=== PATIENT | male | born 1975 | race Two or more races ===

== ENCOUNTER 2017-03-07 12:44 | Emergency (ER) | payer OTHER ==
[~2017-03-07] VITALS: Ht 175.3 cm; Wt 84.5 kg
[~2017-03-07 12:44] MED LIST: CIPRO500 MG PO; FLOMAX0.4 MG PO; NOHOMEMEDS; NORCO 5/3251 TABLET PO; TAMSULOSIN HCL0.4 MG PO; ZOFRAN ODT4 MG PO
[2017-03-07] MEDS ORDERED: FLEXERIL10 MG PO (15:10)
[2017-03-07] MEDS ORDERED: NAPROSYN500 MG PO (15:10)
[2017-03-07 15:31] VITALS: BP 147/91
== END 2017-03-07 15:52 | disposition home or self-care (01) ==
LOC: EME 12:44
DX: S86.812A Strain of other muscle(s) and tendon(s) at lower leg level, left leg, initial encounter (principal); X50.9XXA Other and unspecified overexertion or strenuous movements or postures, initial encounter
CPT/HCPCS: 73564; 73590; 76882; 99281; 99283

== ENCOUNTER 2018-04-06 17:42 | Emergency (ER) | payer OTHER ==
[~2018-04-06] VITALS: Ht 175.3 cm; Wt 89.5 kg
[~2018-04-06 17:42] MED LIST changes: +FLEXERIL10 MG PO; +NAPROSYN500 MG PO
[2018-04-06] MEDS ORDERED: MOTRIN600 MG PO (18:15)
[2018-04-06 18:44] VITALS: BP 128/70
== END 2018-04-06 18:45 | disposition home or self-care (01) ==
LOC: EME 17:42
DX: T23.001A Burn of unspecified degree of right hand, unspecified site, initial encounter (principal); T23.002A Burn of unspecified degree of left hand, unspecified site, initial encounter; V47.5XXA Car driver injured in collision with fixed or stationary object in traffic accident, initial encounter; W22.10XA Striking against or struck by unspecified automobile airbag, initial encounter; R11.0 Nausea
CPT/HCPCS: 99281; 99283